=== PATIENT | female | born 1945 ===

== ENCOUNTER 2017-08-30 09:34 | Emergency (ER) | payer OTHER, MEDICARE ==
--- NOTE | 2017-08-30 10:43 | UC ---
UC General HPI - HPI Summary HPI Summary: Patient is at urgent care today with complaints of a rash around her rectum spreading up her buttock. Patient reports this does not hurt patient reports no bleeding. Patient became alerted to this when she fell a couple days ago and then had some pain and she looked at her bottom and noticed it. - History of Current Complaint Chief Complaint: UCGeneralIllness Stated Complaint: HEADACHE, FATIGUED, PERSONAL Time Seen by Provider: 08/30/17 10:35 Hx Obtained From: Patient Onset/Duration: Sudden Onset - Patient states she noticed the rash for the first time 6 days ago, Still Present Timing: Constant Onset Severity: Moderate Current Severity: Moderate Pain Intensity: 5 - Allergy/Home Medications Allergies/Adverse Reactions: Allergies Allergy/AdvReac Type Severity Reaction Status Date / Time Penicillins Allergy Hives Verified 08/30/17 09:55 Home Medications: Home Medications Cholecalciferol TAB* [Vitamin D TAB*] 1 each PO DAILY 08/30/17 [History Confirmed 08/30/17] L.acidoph,Paracasei, B.lactis [Probiotic] 1 each PO DAILY 08/30/17 [History Confirmed 08/30/17] [place]-3 Fatty Acids/Fish Oil [[place] 3 1,000 mg Softgel] 1 each PO DAILY [History Confirmed 08/30/17] Vitamin B Complex TAB* [B Complex-50*] 1 tab PO DAILY 08/30/17 [History Confirmed 08/30/17] Vitamin E 1 each PO DAILY 08/30/17 [History Confirmed 08/30/17] PMH/Surg Hx/FS Hx/Imm Hx Previously Healthy: No - Surgical History Surgical History: Yes Surgery Procedure, Year, and Place: LEFT MASTECTOMY. HYSTERECTOMY. APPENDIX - Family History Known Family History: Positive: None - Social History Occupation: Retired Lives: With Family - Patient is . Had sexual relationships with a new partner about 4-6 weeks ago Alcohol Use: None Substance Use Type: None Smoking Status (MU): Never Smoked Tobacco Review of Systems Constitutional: Negative Skin: Rash - Buttocks around anus spreading down groin Eyes: Negative ENT: Negative Respiratory: Negative Cardiovascular: Negative Gastrointestinal: Negative Genitourinary: Negative Motor: Negative Neurovascular: Negative Musculoskeletal: Negative Neurological: Negative Psychological: Negative Is Patient Immunocompromised?: No All Other Systems Reviewed And Are Negative: Yes Physical Exam Triage Information Reviewed: Yes Appearance: Well-Appearing, No Pain Distress, Well-Nourished Vital Signs: Initial Vital Signs Temp 98.6 F 08/30/17 09:47 Pulse 81 08/30/17 09:47 Resp 20 08/30/17 09:47 BP 89/70 08/30/17 09:47 Pulse Ox 96 08/30/17 09:47 Vital Signs Reviewed: Yes Eye Exam: Normal Eyes: Positive: Conjunctiva Clear ENT Exam: Normal ENT: Positive: Normal ENT inspection, Hearing grossly normal, Pharynx normal, TMs normal, Uvula midline. Negative: Nasal congestion, Nasal drainage, Tonsillar swelling, Tonsillar exudate, Trismus, Muffled voice, Hoarse voice, Dental tenderness, Sinus tenderness Dental Exam: Normal Neck exam: Normal Neck: Positive: Supple, Nontender, No Lymphadenopathy Respiratory Exam: Normal Respiratory: Positive: Chest non-tender, Lungs clear, Normal breath sounds, No respiratory distress, No accessory muscle use Cardiovascular Exam: Normal Cardiovascular: Positive: RRR, No Murmur, Pulses Normal, Brisk Capillary Refill Musculoskeletal Exam: Normal Musculoskeletal: Positive: Strength Intact, ROM Intact, No Edema Neurological Exam: Normal Neurological: Positive: Alert, Muscle Tone Normal Psychological Exam: Normal Skin Exam: Other Skin: Positive: Other - Approximately 7 cm vertical and 5 cm horizontal area of condyloma perirectally. Does have some scattered red based lesions condyloma- like rash on them and some without Diagnostics - Laboratory Diagnostic Studies Completed/Ordered: . Blood for her PCP HIV syphilis a CBC and a CMP, urine for UA gonorrhea chlamydia, topical swab for herpes simplex virus and Varacella Course/Dx - Course Course Of Treatment: Start acyclovir 1 g 3 times a day. Follow-up appointment made with dsp engineer for patient for September 03 at 1:00 Dr[address] Zaragoza 2 [facility] in [place]. - Differential Dx - Multi-Symptom Provider Diagnoses: Perianal condyloma Discharge - Sign-Out/Discharge Documenting (check all that apply): Discharge/Admit/Transfer - Discharge Plan Condition: Stable Disposition: HOME Prescriptions: ValACYclovir (*) [Valtrex 1 GM(*)] 1 gm PO TID #21 tab Patient Education Materials: Genital Warts (ED) Referrals: Shashi Hernández MD [Medical Doctor] - 09/03/17 12:45 pm - Billing Disposition and Condition Condition: STABLE Disposition: HOME
[2017-08-30 12:35] VITALS: BP 117/74
[2017-08-30 18:24] LABS: ABS Basophils 0 10^3/ul (0-0.2); ABS Eosinophils 0.2 10^3/ul (0-0.6); ABS Lymphocytes 1.1 10^3/ul (1.0-4.8); ABS Monocytes 0.5 10^3/ul (0-0.8); ABS Nucleated RBC 0 10^3/ul; Eosinophil % 2.7 % (0-6); Hematocrit 42 % (35-47); Hemoglobin 13.7 g/dl (12.0-16.0); Lymphocyte % 16.6 % (25-47); Mean Corpuscular HGB Conc 33 g/dl (31-36); Mean Corpuscular Hemoglobin 26 pg (27-31); Mean Corpuscular Volume 80 fL (80-97); Mean Platelet Volume 7.7 um3 (7.4-10.4); Nucleated Red Blood Cells % 0.1; Platelet Count 242 10^3/ul (150-450); Red Blood Count 5.24 10^6/ul (4.0-5.4); Red Cell Distribution Width 15 % (10.5-15); White Blood Count 6.9 10^3/ul (3.5-10.8)
[2017-08-30 18:36] LABS: EGFR Non-African American 71.1 (>60)
--- NOTE | 2017-09-01 08:27 | UC ---
- Progress Note Progress Note: Please call patient. UTI on urine culture. Antibiotics sent in. Discharge - Sign-Out/Discharge Documenting (check all that apply): Discharge/Admit/Transfer - Discharge Plan Condition: Stable Disposition: HOME Prescriptions: Ciprofloxacin HCl [Cipro] 500 mg PO BID #14 tablet ValACYclovir (*) [Valtrex 1 GM(*)] 1 gm PO TID #21 tab Patient Education Materials: Genital Warts (ED) Referrals: Shashi Hernández MD [Medical Doctor] - 09/03/17 12:45 pm - Billing Disposition and Condition Condition: STABLE Disposition: HOME
== END 2017-08-30 13:12 | disposition home or self-care (01) ==
LOC: UCCORT 09:34
DX: A63.0 Anogenital (venereal) warts (principal); N39.0 Urinary tract infection, site not specified; Z88.0 Allergy status to penicillin
CPT/HCPCS: 36415; 80053; 81003; 85025; 86592; 86694; 86695; 86696; 86703; 87077; 87086; 87186; 87491; 87529; 87591; 87798; 99202; G0463

== ENCOUNTER 2017-09-01 14:51 | Emergency (ER) | payer OTHER, MEDICARE ==
[2017-09-01 15:08] VITALS: BP 122/85
--- NOTE | 2017-09-01 15:44 | UC ---
UC General HPI - HPI Summary HPI Summary: Irma returns to the urgent care today. Her urine was positive for entercoccus faecalis . She has not yet had time to fern picker her Cipro that we called in for her this morning. At this visit she complains of worsening headache pain in her back abdominal pain and nausea. She has a temperature of 100.1 - History of Current Complaint Chief Complaint: UCHeadache Stated Complaint: HEADACHE, PAIN AFTER FALL Time Seen by Provider: 09/01/17 15:34 Hx Obtained From: Patient Onset/Duration: Sudden Onset, Other - These worsening symptoms began this morning Timing: Constant Onset Severity: Severe Current Severity: Severe Pain Intensity: 9 - Allergy/Home Medications Allergies/Adverse Reactions: Allergies Allergy/AdvReac Type Severity Reaction Status Date / Time Penicillins Allergy Hives Verified 08/30/17 09:55 PMH/Surg Hx/FS Hx/Imm Hx Previously Healthy: Yes - Surgical History Surgical History: Yes Surgery Procedure, Year, and Place: LEFT MASTECTOMY. HYSTERECTOMY. APPENDIX - Family History Known Family History: Positive: None - Social History Occupation: Retired Lives: With Family Alcohol Use: None Substance Use Type: None Smoking Status (MU): Never Smoked Tobacco Review of Systems Constitutional: Chills, Fatigue Skin: Negative Eyes: Negative ENT: Negative Respiratory: Negative Cardiovascular: Negative Gastrointestinal: Abdominal Pain, Nausea Genitourinary: Dysuria Motor: Negative Neurovascular: Negative Musculoskeletal: Negative Neurological: Headache Psychological: Negative Is Patient Immunocompromised?: No All Other Systems Reviewed And Are Negative: Yes Physical Exam Triage Information Reviewed: Yes Appearance: No Pain Distress, Well-Nourished, Ill-Appearing - Appears ill today Vital Signs: Initial Vital Signs Temp 100.1 F 09/01/17 15:03 Pulse 88 09/01/17 15:03 Resp 20 09/01/17 15:03 BP 122/85 09/01/17 15:03 Pulse Ox 99 09/01/17 15:03 Vital Signs Reviewed: Yes Eye Exam: Normal Eyes: Positive: Conjunctiva Clear ENT Exam: Normal ENT: Positive: Normal ENT inspection. Negative: Nasal congestion, Trismus, Muffled voice, Hoarse voice, Dental tenderness, Sinus tenderness Neck exam: Normal Neck: Positive: Supple, Nontender Respiratory Exam: Normal Respiratory: Positive: Chest non-tender, No respiratory distress, No accessory muscle use Cardiovascular Exam: Normal Cardiovascular: Positive: RRR, Pulses Normal, Brisk Capillary Refill Abdominal Exam: Other Abdomen Description: Positive: Soft, CVA Tenderness (R), CVA Tenderness (L) Bowel Sounds: Positive: Present Musculoskeletal Exam: Normal Musculoskeletal: Positive: Strength Intact, ROM Intact, No Edema Neurological Exam: Normal Neurological: Positive: Alert, Muscle Tone Normal Psychological Exam: Normal Skin Exam: Normal Course/Dx - Course Course Of Treatment: Will discharge patient from the urgent care to go to the [facility] emergency department - Differential Dx - Multi-Symptom Provider Diagnoses: Flank pain, headache, fever - Physician Notifications Time Discussed With Above Provider: 15:30 - Marlin Gongora Discharge - Sign-Out/Discharge Documenting (check all that apply): Discharge/Admit/Transfer - Discharge Plan Condition: Fair Disposition: HOME Discharge Disposition Comment: to [facility] ED Patient Education Materials: Urinary Tract Infection in Women (ED), Fever in Adults (ED) Referrals: Non Staff,Doctor [Primary Care Provider] - Additional Instructions: Irma, we are going to discharge her from the urgent care and ask you to go directly over to the emergency department at [facility] for further evaluation and care - Billing Disposition and Condition Condition: FAIR Disposition: HOME
== END 2017-09-01 15:53 | disposition home or self-care (01) ==
LOC: UCCORT 14:51
DX: R10.9 Unspecified abdominal pain (principal); R51 Headache; R50.9 Fever, unspecified; Z88.0 Allergy status to penicillin
CPT/HCPCS: 99212; G0463